=== PATIENT | female | born 1935 | race Caucasian/White ===

== ENCOUNTER 2019-08-03 21:16 | Emergency (ER) | payer OTHER ==
[~2019-08-03] VITALS: Ht 170.2 cm; Wt 63.5 kg
[2019-08-03] MEDS ORDERED: SYNTHROID88 MCG PO (21:29)
[2019-08-03] MEDS ORDERED: THERAPEUTIC-M1 EAC3 PO (21:29)
== END 2019-08-03 23:35 | disposition home or self-care (01) ==
LOC: ED 21:16
DX: R11.2 Nausea with vomiting, unspecified (principal); E03.9 Hypothyroidism, unspecified; Z79.899 Other long term (current) drug therapy; Z88.2 Allergy status to sulfonamides
CPT/HCPCS: 80053; 81001; 83735; 85025; 96361; 96374; 99283-25; J2405; J7030